=== PATIENT | male | born 1945 | race American Indian/Alaskan Native ===

== ENCOUNTER 2017-04-10 17:12 | Inpatient (IN) | payer MEDICARE ==
[2017-04-10 17:27] VITALS: BMI 28.2
[2017-04-10 19:01] LABS: BASO % 0.5 % (0.0-2.0); EOS # 0.2 K/uL (0.0-0.7); EOS % 2.7 % (0.0-4.0); HEMATOCRIT 36.5 % (35.0-51.0); LYMPH # 3.1 K/uL (1.0-4.3); LYMPH % 54.6 % (20.0-40.0); MEAN CELL VOLUME 94.5 fL (80.0-94.0); MEAN CORPUSCULAR HEMOGLOBIN 31.9 pg (27.0-31.0); MEAN CORPUSCULAR HGB CONC 33.8 g/dL (33.0-37.0); MEAN PLATELET VOLUME 8.3 fL (7.2-11.7); MONO # 0.7 K/uL (0.0-0.8); MONO % 12.4 % (0.0-10.0); NRBC % 0.1 % (0.0-2.0); RED CELL DISTRIBUTION WIDTH 13.4 % (11.5-14.5); WHITE BLOOD COUNT 5.7 K/uL (4.8-10.8)
[2017-04-10 19:13] LABS: CHLORIDE 100 mmol/L (98-107)
[2017-04-10 19:14] LABS: POTASSIUM 3.8 mmol/L (3.6-5.2); SODIUM 139 mmol/L (132-148)
[2017-04-10 19:16] LABS: ALB/GLOB RATIO 1.2 (1.0-2.1); AST/SGOT 21 U/L (17-59); BILIRUBIN,TOTAL 0.5 mg/dL (0.2-1.3); CARBON DIOXIDE 29 mmol/L (22-30); GFR AFRICAN-AMERICAN > 60; TOTAL PROTEIN 7.6 g/dL (6.3-8.3)
[2017-04-10 19:17] LABS: ALCOHOL SERUM < 10 mg/dl (0-10); ALKALINE PHOSPHATASE 69 U/L (38-126); ALT/SGPT 22 U/L (21-72); BLOOD UREA NITROGEN 4 mg/dL (9-20); GLUCOSE,RANDOM 80 mg/dL (75-110)
[2017-04-10 19:33] LABS: RBC URINE 7 /hpf (0-3); URINE BACTERIA RARE (<OCC); URINE BILIRUBIN NEGATIVE (NEGATIVE); URINE BLOOD 1+ (NEGATIVE); URINE COLOR Yellow (YELLOW); URINE GLUCOSE (UA) NORMAL (Normal); URINE KETONE NEGATIVE (NEGATIVE); URINE LEUKOCYTE ESTERASE NEG Leu/uL (Negative); URINE PROTEIN NEGATIVE (NEGATIVE); WBC URINE 1 /hpf (0-5)
--- NOTE | 2017-04-10 19:34 | C.PDOC ---
History Of Present Illness 72 year old male presents to the ED as a pre-screen for heroin detox. Patient states he uses 15 bags of heroin intranasally, daily. He denies physical complaints, suicidal, or homicidal ideations. Time Seen by Provider: 04/10/17 18:33 Chief Complaint (Nursing): Substance Abuse History Per: Patient History/Exam Limitations: no limitations Suicide/Self Injury Attempted (Context): None Modifying Factor(s): Narcotics (heroin ) Severity: None Pain Scale Rating Of: 0 Associated Symptoms: denies: Suicidal Thoughts, Suicidal Plan Involuntary Hold By: None Recent travel outside of the [place]: No Past Medical History Reviewed: Historical Data, Nursing Documentation, Vital Signs Vital Signs: Last Vital Signs Temp 98.2 F 04/10/17 19:56 Pulse 67 04/10/17 19:56 Resp 18 04/10/17 19:56 BP 112/68 04/10/17 19:56 Pulse Ox 99 04/10/17 21:02 - Medical History PMH: Anxiety, HTN - [facility] DETOXIFICATION SERVICES FOR SUBSTANCE ABUSE TREATMENT (05/20/16) GROUP EVENT SPECIALIST FOR SUBSTANCE ABUSE TREATMENT, PSYCHOEDUCATION (05/20/16) Family History: States: Unknown Family Hx - Social History Hx Tobacco Use: Yes Hx Alcohol Use: No Hx Substance Use: Yes - Immunization History Hx Tetanus Toxoid Vaccination: No Hx Influenza Vaccination: No Hx Pneumococcal Vaccination: No Physical Exam - Physical Exam Appears: Non-toxic, No Acute Distress, Other (irritable ) Skin: Warm, Dry Head: Atraumatic Eye(s): bilateral: Other (pupil mydriasis) Oral Mucosa: Moist Neck: Supple Chest: Symmetrical, No Deformity Cardiovascular: Rhythm Regular, No Murmur Respiratory: Normal Breath Sounds, No Rales, No Rhonchi, No Wheezing Gastrointestinal/Abdominal: Soft, No Tenderness, No Distention, No Guarding, No Rebound Extremity: Normal ROM, No Tenderness Neurological/Psych: Oriented x3 ED Course And Treatment - Laboratory Results Result Diagrams: 04/10/17 18:56 04/10/17 18:56 Lab Interpretation: Abnormal (+ opiates) ECG: Interpreted By Me, Viewed By Me ECG Rhythm: Sinus Rhythm ECG Interpretation: Normal Rate From EC O2 Sat by Pulse Oximetry: 99 (room air ) - Radiology CXR: Interpreted by Me CXR Interpretation: Yes: No Acute Disease Progress Note: EKG, CXR, and UA were ordered. Patient was given nicoderm CQ and Librium. Reevaluation Time: 21:01 Reassessment Condition: Improved - Physician Consult Information Outcome Of Conversation: 2100: d/w Crisis, ok to Detox Disposition Doctor Will See Patient In The: Hospital Counseled Patient/Family Regarding: Studies Performed, Diagnosis - Disposition Disposition: HOSPITALIZED Disposition Time: 21:01 Condition: GOOD Forms: [facility] ([place]) - Clinical Impression Clinical Impression: Opioid use disorder, severe, dependence - Scribe Statement The provider has reviewed the documentation as recorded by the Scribe Inge Linder All medical record entries made by the [place] were at my direction and personally dictated by me. I have reviewed the chart and agree that the record accurately reflects my personal performance of the history, physical exam, medical decision making, and the department course for this patient. I have also personally directed, reviewed, and agree with the discharge instructions and disposition.
[2017-04-10] MEDS ORDERED: Aluminum Hydroxide/Magnesium Hydroxide Susp (30 mL) PO PRN (21:27)
--- NOTE | 2017-04-10 21:37 | PCM.BM ---
Treatment Plan Problems - Problems identified on initial assessmt Potential for Opiate withdrawal Date Initiated: 04/10/17 Time Initiated: 21:35 Assessment reference: NA Status: Active Priority: 1 Treatment assets and liabiliti Patient Assests: cooperative, negotiates basic needs Patient Liabilities: substance abuse - Milieu Protocol Maintain good personal hygiene: daily Encourage regular showers, daily Remind patient to perform daily oral care, daily Assist patient to perform ADL's Conduct patient checks and document Observation sheet: Q15 minutes Maintain personal safety: every shift Educate patient to report safety concerns to staff, every shift Monitor environment for contraband/sharps Medication safety: Monitor for expected outcome, potential side effects: every shift, Assess barriers to learning: every shift, Assess readiness for medication education: every shift
--- NOTE | 2017-04-10 23:43 | PCM.BM ---
<Albertina Centeno - Last Filed: 04/10/17 23:42> Treatment Plan Problems - Problems identified on initial assessmt Potential for Opiate withdrawal Date Initiated: 04/10/17 Time Initiated: 21:35 Assessment reference: NA Status: Active Priority: 1 Treatment assets and liabiliti Patient Assests: cooperative, negotiates basic needs Patient Liabilities: substance abuse - Milieu Protocol Maintain good personal hygiene: daily Encourage regular showers, daily Remind patient to perform daily oral care, daily Assist patient to perform ADL's Conduct patient checks and document Observation sheet: Q15 minutes Maintain personal safety: every shift Educate patient to report safety concerns to staff, every shift Monitor environment for contraband/sharps Medication safety: Monitor for expected outcome, potential side effects: every shift, Assess barriers to learning: every shift, Assess readiness for medication education: every shift <Deepali Mcdonald - Last Filed: 04/11/17 11:18> - Diagnosis (1) Opioid use disorder, severe, dependence Status: Acute Interventions: 04/11/17 11:18 * Assess 7x/week regarding severity of withdrawal * Educate regarding risks, benefits, side effects and alternatives of medications * Use Motivational Interviewing for abstinence * Use CBT for relapse prevention * Medication management for withdrawal symptoms * Encourage medication assisted treatment *
[2017-04-11] MEDS: Multiple Vitamins Tab PO SCH (09:57)
--- NOTE | 2017-04-11 10:25 | RAD ---
HISTORY: Detox/Psy COMPARISON: Chest radiographs 09/03/2013. TECHNIQUE: Chest PA and lateral FINDINGS: LUNGS: No active pulmonary disease. PLEURA: No significant pleural effusion identified. No pneumothorax apparent. CARDIOVASCULAR: Normal. OSSEOUS STRUCTURES: No significant abnormalities. VISUALIZED UPPER ABDOMEN: Normal. OTHER FINDINGS: None. IMPRESSION: No acute cardiopulmonary disease or significant interval change compared to 09/03/2013.
[2017-04-11] MEDS ORDERED: Buprenorphine Hydrochloride 2 mg SL ONE ×2 (11:30→12:30)
--- NOTE | 2017-04-11 13:50 | PCM.PSYCH ---
Initial Psychiatric Evaluation - Initial Psychiatric Evaluation Type of Admission: Voluntary Legal Status: Capacity Chief Complaint (in patient's own words): "I relapsed." History of Present Illness and Precipitating Events: The pt. is seen, chart reviewed, and case discussed. This is a 72 y/o male who presents to detox with long history of heroin dependence. This is his 4th time in detox at [facility], last one in 2015. He was also in rehab once in [facility] in 2004. Pt. also claims past history of attending Methadone program for 1 week in 1989. Since the last detox treatment, pt. reports he did not follow up with any plans and therefore relapsed. Pt. reports to snorting 15-20 bags daily for the last 35 yrs. Pt. started heroin in 1984 and gradually increased his intake throughout the years. His last use was Sunday night (04/09/17). Pt. reports the longest period of sobriety was for 1 yr. Pt. also reports to smoking 1 pack of cigarettes daily. Pt. denies alcohol use and denies other substances such as Xanax, cocaine, marijuana , and pain killers. Pt. reports to having withdrawal sxs--irregular sleep pattern, chills, diarrhea , bubbling stomach, joint pain, and body aches. Pt. manifests mild piloerection and pupil dilation. Pt. reports he is anxious but says he is "trying to be relaxed." Pt. denies visual and auditory hallucinations and denies suicidal and homicidal ideation. Past pysch Hx: Depression (was on Lexapro and Remeron; continue Remeron) Medical Hx: Arthritis; cataracts; enlarged prostate (pt. 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 Current Medications: Active Medications Generic Name Dose Route Start Last Admin Trade Name Freq PRN Reason Stop Dose Admin Al Hydrox/Mg Hydrox/Simethicone 30 ml 04/10/17 21:27 Maalox 30 Ml PO TID PRN Indigestion / Heartburn Folic Acid 1 mg 04/11/17 10:00 04/11/17 09:57 Folic Acid PO 1 mg DAILY ANDRAE Administration Ibuprofen 400 mg 04/10/17 21:42 Motrin Tab PO Q6H PRN Pain, moderate (4-7) Loperamide HCl 2 mg 04/10/17 21:27 Imodium PO Q8 PRN Diarrhea Mirtazapine 7.5 mg 04/10/17 22:00 04/10/17 23:24 Remeron PO 7.5 mg HS ANDRAE Administration Multivitamins 1 tab 04/11/17 10:00 04/11/17 09:57 Hexavitamin PO 1 tab DAILY ANDRAE Administration Ondansetron HCl 4 mg 04/10/17 21:27 Zofran Tab PO Q8 PRN Nausea/Vomiting Thiamine HCl 100 mg 04/11/17 10:00 04/11/17 09:57 Vitamin B1 Tab PO 100 mg DAILY ANDRAE Administration Past Psychiatric History - Past Psychiatric History Pertinent Medical Hx (Current Medical&Sleep Prob, Allergies): Allergies Allergy/AdvReac Type Severity Reaction Status Date / Time No Known Allergies Allergy Verified 04/10/17 17:25 No Known Home Med 04/10/17 Review of Systems - Neurological Neurological: UNREMARKABLE - Psychiatric Psychiatric: As Per HPI, Anxiety, Depression, Difficulty Concentrating. absent : Auditory Hallucinations, Homicidal Ideation, Suicidal Ideation, Visual Hallucinations Mental Status Examination - Personal Presentation Personal Presentation: Looks stated age - Affect Affect: Constricted - Motor Activity Motor Activity: Calm - Reliability in Providing Information Reliability in Providing Information: Good - Speech Speech: Organized - Mood Mood: Depressed, Anxious - Formal Thought Process Formal Thought Process: No Impairment - Obsessions/Compulsions Obsessions: No Compulsions: No - Cognitive Functions Orientation: Person, Place, Situation, Time Sensorium: Lethargic Attention/Concentration: Attentive Abstract Thinking: [place] Estimate of Intelligence: Average Judgement: Intact, as evidence by: Insight regarding need for hospitalization Memory: Remote intact, as evidenced by: Abilit to recall sig. life events - Risk Risk: Withdrawal, Diminished functioning - Strength & Assets Inventory Strength & Assets Inventory: Family support, Cooperative - Limitations Limitations: Other Additional comments: Unemployed DSM 5 DX - DSM 5 DSM 5 Diagnosis: Opioid use d/o-severe Opioid withdrawal Depression-unspecified - Recommended/Plan of Treatment Treatment Recommendations and Plan of Treatment: Opioid use d/o-severe CBT for relapse prevention Psychoeducation Supportive therapy, individual therapy Use GA for abstinence Opioid withdrawal Subtutex detox As needed meds and vitamins Support and psychoeducation daily Attend group activities daily Consider and encourage MAT Refer to after care. Pt. is open to Suboxone maintenance program with Dr. Rubin or Dr. Benavidez. Depression-unspecified Continue Remeron CBT Groups and individual treatment 33 min Projected ELOS: 4-5 days Prognosis: good with treatment - Smoking Cessation Smoking Cessation Initiated: Yes
[2017-04-12] MEDS: Multiple Vitamins Tab PO SCH (09:15)
[2017-04-12] MEDS ORDERED: Buprenorphine Hydrochloride 2 mg SL SCH ×2 (09:30→10:00)
[2017-04-12] MEDS ORDERED: Buprenorphine Hydrochloride 2 mg SL ONE ×2 (10:12→16:03)
--- NOTE | 2017-04-12 11:43 | PCM.PYCHPN ---
Psychiatric Progress Note - Psychiatric Progress Note Patient seen today, length of contact: 15 min. Patient Chief Complaint: "I feel very weak." Problems Identified/Issues Discussed: The pt. is seen, chart reviewed, case discussed with staff. Pt reports he is very weak and had trouble sleeping through the night. He seems very irritable, claiming that the dose of Subutex that he is getting is not helping him. Order has been made to change his dosage and will be discharged Sunday. Support given, CBT and UT used briefly. No new symptoms reported, improving slowly, and needs more time. No SEs from medications, risks discussed. After care discussed. His plan is to continue with a suboxone maintenance program; SW will need to check with Dr. Benavidez or a treatment agency in [place]. Medication Change: Yes (Subutex dosage increased; Remeron 15 mg; Trazodone 50 mg ) Medical Record Reviewed: Yes Mental Status Examination - Cognitive Function Orientation: Person, Place, Situation, Time Memory: Intact Attention: WNL Concentration: WNL Association: WNL Fund of Knowledge: WNL - Mood Mood: Depressed, Anxious - Affect Affect: Constricted - Speech Speech: Appropriate - Formal Thought Process Formal Thought Process: No Impairment - Suicidal Ideation Suicidal Ideation: No - Homicidal Ideation Homicidal Ideation: No Goal/Treatment Plan - Goal/Treatment Plan Need for Continued Stay: Remain at risks for inpatient hospitalization, Severe depression anxiety, Discharge may exacerbated symptoms, Severe functional impairment Progress Toward Problem(s) and Goals/Treatment Plan: Opioid use d/o-severe CBT for relapse prevention Psychoeducation Supportive therapy, individual therapy Use UT for abstinence Opioid withdrawal Subutex detox As needed meds and vitamins Support and psychoeducation daily Attend group activities daily Consider and encourage MAT Refer to after care. Pt. is open to Suboxone maintenance program with Dr. Benavidez or treatment agency in [place]. Depression-unspecified Remeron dosage increased to 15 mg Trazadone 50 mg PO HS CBT Groups and individual treatment 15 min Estimated Date of D/C: 04/15/17 - Smoking Cessation Smoking Cessation Initiated: Yes
--- NOTE | 2017-04-12 18:07 | CARD ---
APPROVED REPORT EKG Measurement Heart [id number] <Conclusion> Normal sinus rhythm Normal ECG
[2017-04-13] MEDS: Multiple Vitamins Tab PO SCH (09:29)
[2017-04-13] MEDS: Buprenorphine Hydrochloride 2 mg SL SCH (09:30)
--- NOTE | 2017-04-13 15:16 | PCM.PYCHPN ---
Psychiatric Progress Note - Psychiatric Progress Note Patient seen today, length of contact: 15 min. Patient Chief Complaint: "I am feeling much better." Problems Identified/Issues Discussed: The pt. is seen, chart reviewed, case discussed with staff. Pt. reports he "feels great" and asked for earlier discharge. Pt. currently does not show obvious withdrawal sxs. Pt. will be discharged tomorrow instead of the expected date on Sunday. Support given, CBT and [place] used briefly. No new symptoms reported, improving slowly, needs more time. No SEs from medications, risks discussed. After care discussed. Pt.'s plan is to continue suboxone maintenance program with Dr. Benavidez on 05/01/17. Medication Change: Yes (Subutex dosage increased; Remeron 15 mg; Trazodone 50 mg ; Flomax) Medical Record Reviewed: Yes Mental Status Examination - Cognitive Function Orientation: Person, Place, Situation, Time Memory: Intact Attention: WNL Concentration: WNL Association: WNL Fund of Knowledge: WNL - Mood Mood: Neutral - Affect Affect: Broad - Speech Speech: Appropriate - Formal Thought Process Formal Thought Process: No Impairment - Suicidal Ideation Suicidal Ideation: No - Homicidal Ideation Homicidal Ideation: No Goal/Treatment Plan - Goal/Treatment Plan Need for Continued Stay: Severe depression anxiety, Discharge may exacerbated symptoms Progress Toward Problem(s) and Goals/Treatment Plan: Opioid use d/o-severe CBT for relapse prevention Psychoeducation Supportive therapy, individual therapy Use NJ for abstinence Opioid withdrawal Subutex detox As needed meds and vitamins Support and psychoeducation daily Attend group activities daily Consider and encourage MAT Refer to after care. Pt. requested to be discharged tomorrow instead of Sunday. Pt. is open to seeing Dr. Benavidez on 05/01/17 for suboxone maintenance program. Depression-unspecified Remeron dosage increased to 15 mg Trazadone 50 mg PO HS CBT Groups and individual treatment 15 min Estimated Date of D/C: 04/14/17 - Smoking Cessation Smoking Cessation Initiated: No
--- NOTE | 2017-04-14 09:18 | PCM.PYCHDC ---
Mental Status Examination - Mental Status Examination Orientation: Person, Place, Situation, Time Memory: Impaired Mood: Anxious Affect: Constricted Speech: Appropriate Attention: WNL Concentration: WNL Association: WNL Fund of Knowledge: WNL Formal Thought Process: No Impairment Suicidal Ideation: No Current Homicidal Ideation?: No Discharge Summary - Discharge Note Reason for Hospitalization: Opioid detox Consultations:: List each consultation separately and include: 1. Reason for request. 2. Findings. 3. Follow-up Summary of Hospital Course include:: 1. Description of specific treatment plan utilized for patients during their course of treatmen. 2. Summarize the time- course for resolution of acute symptoms and/or regressed behaviors. 3. Describe issues identified and worked on during hospitalization. 4. Describe medication utilized. 5. Describe medical problems identified and treated. 6. Reassessment of suicide risk Summary of Hospital Course: The patient was admitted and started on treatment with psychotherapy, support, psychoeducation and medications. IN and CBT used. The patient attended some groups and activities, as well as milieu therapy. All the risks and benefits of medications are discussed and the patient understood and agreed. The patient improved with the treatments provided. After care discussed with the patient. He asked to attend suboxone maintenance in [facility]. Appt is made. He was generally cooperative but sometimes irate and med-seeking. Refused to participate fully - Final Diagnosis (DSM 5) Condition upon Discharge: GOOD DSM 5: Opioid use d/o-severe Opioid withdrawal Depression-unspecified Disposition: HOME/ ROUTINE Follow-up Treatment Plan: Continue below medications after discharge. Follow after care plan as discussed. Use relapse prevention skills. Return to ED or call 911 if suicidal, homicidal or symptoms relapse. Stay away from stress, alcohol and drugs. See primary doctor once a year. Prescriptions/Medication Reconciliation: Mirtazapine [Remeron] 15 mg PO HS #30 tab Tamsulosin [Flomax] 0.4 mg PO DAILY #30 cap traZODone [Desyrel] 50 mg PO HS #30 tab
[2017-04-14 09:21] VITALS: BP 118/82; PULSE 109; RESP 20; TEMP 98.5; O2SAT 96
[2017-04-14] MEDS: Multiple Vitamins Tab PO SCH (09:35)
[2017-04-14] MEDS: Buprenorphine Hydrochloride 2 mg SL SCH (09:35)
== END 2017-04-14 11:00 | disposition home or self-care (01) | DRG 895 ==
LOC: C.ER 17:12 → C.7D 21:01
PROVIDERS: ADMIT Psychiatry & Neurology Psychiatry; ATTEND Psychiatry & Neurology Psychiatry
PROC: HZ2ZZZZ Detoxification Services for Substance Abuse Treatment (ICD-10-PCS; principal; 2017-04-10)
PROC: HZ52ZZZ Individual Psychotherapy for Substance Abuse Treatment, Cognitive-Behavioral (ICD-10-PCS; 2017-04-10)
PROC: HZ42ZZZ Group Counseling for Substance Abuse Treatment, Cognitive-Behavioral (ICD-10-PCS; 2017-04-10)
PROC: HZ59ZZZ Individual Psychotherapy for Substance Abuse Treatment, Supportive (ICD-10-PCS; 2017-04-10)
PROC: HZ56ZZZ Individual Psychotherapy for Substance Abuse Treatment, Psychoeducation (ICD-10-PCS; 2017-04-10)
PROC: HZ46ZZZ Group Counseling for Substance Abuse Treatment, Psychoeducation (ICD-10-PCS; 2017-04-10)
DX: F11.23 Opioid dependence with withdrawal (principal); I10 Essential (primary) hypertension; F17.210 Nicotine dependence, cigarettes, uncomplicated; F41.8 Other specified anxiety disorders